=== PATIENT | male | born 1955 | race Caucasian/White ===

== ENCOUNTER → 2016-06-02 | Outpatient (REF) | LOC: COL.CARD 08:16 | DX: R00.2 Palpitations (principal) ==

== ENCOUNTER → 2018-03-06 | Outpatient (REF) | LOC: ZLAB.WCH 16:20 | DX: Z01.89 Encounter for other specified special examinations (principal) ==

== ENCOUNTER 2022-06-04 10:43 | Day surgery (SDC) | payer BC ==
[~2022-06-04] VITALS: Ht 177.8 cm; Wt 87.5 kg
[~2022-06-04 10:43] MED LIST: NORCO 325 MG-51 TAB; PRIL40
[2022-06-04 11:51] VITALS: BP 146/84; PULSE 87; TEMP 97.5
[2022-06-04 12:09] LABS: HEMATOCRIT 49.3 % (42.0-52.0); HEMOGLOBIN 17.4 g/dl (13.5-18.0); MEAN CELL VOLUME 92 fl (80.0-100.0); MEAN CORPUSCULAR HEMOGLOBIN 33 pg (27-31); MEAN CORPUSCULAR HGB CONC 35 g/dl (33.0-37.0); MEAN PLATELET VOLUME 9.2 fl (7.4-10.4); PLATELET COUNT 251 K/mm3 (130-400); RED BLOOD COUNT 5.35 M/mm3 (4.20-5.60); REDCELL DISTRIBUTION WIDTH-CV 12.7 % (11.5-14.5)
[2022-06-04 12:38] LABS: ALBUMIN 4.1 gm/dL (3.4-4.8); BILIRUBIN,TOTAL 0.8 mg/dL (0.2-1.2); CALCIUM 9.8 mg/dL (8.4-10.2); CREATININE, serum 0.82 mg/dL (0.72-1.25); POTASSIUM 3.9 mmol/L (3.5-4.5); TOTAL PROTEIN 7.9 gm/dL (6.2-8.1)
[2022-06-04] MEDS ORDERED: NORCO 325 MG-51 TAB PO (14:28)
[2022-06-04 14:44] VITALS: TEMP 98.2
--- NOTE | 2022-06-04 15:05 | NUR ---
1505 PATIENT RETURNS TO ROOM 3 VIA CART. PATIENT IS ALERT AND ORIENTED. RESPIRATIONS EVEN AND UNLABORED. PATIENT BROUGHT TO CT ON 2LPM VIA NC. NO C/O PAIN. VITAL SIGNS OBTAINED. 4 LAP SITES TO ABDOMEN, ALL COVERED WITH BANDAIDS, ALL CDI. 1505 PATIENT REQUESTED WATER AND COFFEE. TOLERATED WELL. 1525 DISCUSSED DISCHARGE INSTRUCTIONS WITH PATIENT. PATIENT VERBALIZED UNDERSTANDING. 1530 DISCONTINUED IV FROM LEFT FOREARM WITH NO DIFFICULTIES. 1535 PATIENT DRESSES SELF AND ATTEMPTS TO URINATE. PATIENT STATES THAT HE IS UNABLE TO URINATE AT THIS TIME. THIS NURSE ENCOURAGED PATIENT TO GO TO THE ER TONIGHT IF HE'S UNABLE TO URINATE BY MIDNIGHT. PATIENT VERBALIZED UNDERSTANDING. 1600 PATIENT DISCHARGED FROM UNIT VIA WHEELCHAIR.
[2022-06-04 15:13] VITALS: BP 138/65; PULSE 86
== END 2022-06-04 16:00 | disposition home or self-care (01) ==
LOC: SDCO 10:43
PROVIDERS: Surgery
DX: K80.00 Calculus of gallbladder with acute cholecystitis without obstruction (principal); K66.0 Peritoneal adhesions (postprocedural) (postinfection); F17.210 Nicotine dependence, cigarettes, uncomplicated; K21.9 Gastro-esophageal reflux disease without esophagitis
CPT/HCPCS: J0690; J1100; J1170; J1885; J2405; J2704; J3010; J7120